=== PATIENT | female | born 1990 | race Hispanic/Latino ===

== ENCOUNTER 2018-10-31 19:01 | Inpatient (IN) | payer MEDICAID, OTHER, SELFPAY ==
[2018-10-31 19:57] VITALS: BMI 37.4
[2018-10-31] MEDS ORDERED: hydrALAZINE 20 MG/ML VIAL SLOW IVP PRN (21:15)
[2018-10-31] MEDS ORDERED: Butorphanol Tartrate 1 MG/ML VIAL SLOW IVP PRN (21:15)
[2018-10-31] MEDS ORDERED: Misoprostol 200 MCG TAB PR PRN (21:15)
[2018-10-31] MEDS ORDERED: NS / Oxytocin 40 units/1000ml 1,000 ML IV PRN (21:15)
[2018-10-31] MEDS ORDERED: Lidocaine 1% (PF) 30 ML VIAL SC PRN (21:15)
[2018-10-31] MEDS ORDERED: Promethazine HCl 25 MG/ML VIAL IM PRN (21:15)
[2018-10-31] MEDS ORDERED: Carboprost 250 MCG/ML AMP IM PRN (21:15)
[2018-10-31] MEDS ORDERED: Methylergonovine 0.2 MG/ML VIAL IM PRN (21:15)
[2018-10-31] MEDS ORDERED: Ondansetron PF 4 MG/2 ML Vial IVP PRN (21:15)
[2018-10-31] MEDS ORDERED: Ibuprofen 800 MG TAB PO PRN (21:15)
[2018-10-31] MEDS ORDERED: HYDROcodone/Acetaminophen 5/325 mg Tablet PO PRN (21:15)
[2018-10-31] MEDS ORDERED: Diphenoxylate HCl/Atropine Tablet PO PRN (21:15)
[2018-10-31] MEDS ORDERED: NS w/ Oxytocin 10 units 500 ML IV SCH ×2 (21:30)
[2018-10-31 21:49] LABS: Hemoglobin 13.4 g/dL (12.0-16.0); Mean Corpuscular HGB CONC 34.8 g/dL (32.0-36.0); Mean Corpuscular Hemoglobin 31.1 pg (27.0-31.0); Mean Corpuscular Volume 89.4 fL (78.0-98.0); Platelet Count 212 thou/uL (130-400); RBC Distribution Width 12.8 % (11.5-14.5); Red Blood Cell (RBC) Count 4.31 mill/uL (4.20-5.40); White Blood Cell (WBC) Count 9.5 thou/uL (4.8-10.8)
[2018-10-31 22:25] LABS: Syphilis Antibody Nonreactive (Nonreactive); Syphilis Antibody Index 0.03 S/CO (<1.00 Non-Reactive)
[2018-10-31] MEDS: Lactated Ringer's 1,000 ML IV SCH (22:29)
[2018-10-31] MEDS: Misoprostol 100 MCG TAB PO SCH (22:29)
[2018-10-31 23:09] LABS: HBSAg Index 0.18 S/CO (0-0.99); Hep B Surf Ag Non-Reactive S/CO (NonReactive)
[2018-11-01] MEDS: Lactated Ringer's 1,000 ML IV SCH ×2 (02:30→11:03)
[2018-11-01] MEDS: Misoprostol 100 MCG TAB PO SCH (03:03)
[2018-11-01] MEDS ORDERED: Fentanyl 4 mcg/Bup 0.1% Cadd 100 ML ONE (12:51)
[2018-11-01] MEDS ORDERED: Lidocaine 1.5%/Epinephrine 1:200,000 5 ML AMPUL IJ ONE (13:01)
[2018-11-01] MEDS ORDERED: ePHEDrine/0.9% NaCl/PF SYRINGE 50 mg/10 ml SLOW IVP PRN (13:14)
[2018-11-01] MEDS ORDERED: Promethazine HCl 25 MG/ML VIAL IM PRN ×2 (13:14→17:46)
[2018-11-01] MEDS ORDERED: Ondansetron PF 4 MG/2 ML Vial IVP PRN ×2 (13:14→17:46)
[2018-11-01] MEDS ORDERED: Acetaminophen 325 MG TAB PO PRN (13:14)
[2018-11-01] MEDS ORDERED: diphenhydrAMINE 50 MG/ML VIAL IVP PRN (13:14)
[2018-11-01] MEDS ORDERED: Naloxone HCl 0.4 mg/ml Vial IVP PRN ×2 (13:14)
[2018-11-01] MEDS ORDERED: Lactated Ringer's 500 ML IV PRN (13:14)
[2018-11-01] MEDS ORDERED: Fentanyl 4 mcg/Bupivacaine 0.1% Cassette 100 ML EPIDURAL SCH (13:15)
[2018-11-01] MEDS ORDERED: Communication Order-Pharmacy FS SCH (13:15)
[2018-11-01] MEDS ORDERED: Milk Of Magnesia 30 ML UDCUP PO PRN (17:46)
[2018-11-01] MEDS ORDERED: hydrALAZINE 20 MG/ML VIAL SLOW IVP PRN (17:46)
[2018-11-01] MEDS ORDERED: Lanolin Ointment 7 GM TUBE TOP PRN (17:46)
[2018-11-01] MEDS ORDERED: Benzocaine-Menthol 82.5 ML CAN TOP PRN (17:46)
[2018-11-01] MEDS ORDERED: HYDROcodone/Acetaminophen 5/325 mg Tablet PO PRN ×2 (17:46)
[2018-11-01] MEDS ORDERED: NS / Oxytocin 40 units/1000ml 1,000 ML IV SCH (17:46)
[2018-11-01] MEDS ORDERED: diphenhydrAMINE 25 MG CAP PO PRN (17:46)
[2018-11-01] MEDS ORDERED: Bisacodyl 10 MG SUPP PR PRN (17:46)
[2018-11-01] MEDS ORDERED: Preparation H Ointment 28 GM TUBE PR PRN (17:46)
[2018-11-01] MEDS ORDERED: Adacel (T-DAP) 0.5 ML SYRINGE IM ONE (18:00)
[2018-11-01] MEDS ORDERED: Ferrous Sulfate 325 MG TAB PO SCH (18:00)
[2018-11-01] MEDS: Ibuprofen 800 MG TAB PO SCH (22:40)
[2018-11-01] MEDS: Docusate Calcium (SURFAK) 240 MG CAP PO SCH (22:40)
[2018-11-02] MEDS: Ibuprofen 800 MG TAB PO SCH ×2 (06:14→14:30)
[2018-11-02] MEDS: Misoprostol 100 MCG TAB PO SCH (07:28)
[2018-11-02] MEDS: Ferrous Sulfate 325 MG TAB PO SCH ×2 (07:32→14:38)
[2018-11-02] MEDS ORDERED: Prenatal Vitamin 1 TAB PO SCH (09:00)
[2018-11-02] MEDS: Docusate Calcium (SURFAK) 240 MG CAP PO SCH (09:09)
[2018-11-02 11:41] VITALS: BP 104/59; TEMP 97.6
== END 2018-11-02 17:20 | disposition home or self-care (01) | DRG 807 ==
LOC: L&D 19:01 → 3SW 11-01 19:53
PROVIDERS: ADMIT Family Medicine; ATTEND Family Medicine
PROC: 10E0XZZ Delivery of Products of Conception, External Approach (ICD-10-PCS; principal; 2018-11-01)
PROC: 0KQM0ZZ Repair Perineum Muscle, Open Approach (ICD-10-PCS; 2018-11-01)
PROC: 3E0P7VZ Introduction of Hormone into Female Reproductive, Via Natural or Artificial Opening (ICD-10-PCS; 2018-11-01)
PROC: 10907ZC Drainage of Amniotic Fluid, Therapeutic from Products of Conception, Via Natural or Artificial Opening (ICD-10-PCS; 2018-11-01)
DX: O99.214 Obesity complicating childbirth (principal); Z37.0 Single live birth; E66.9 Obesity, unspecified; O69.81X0 Labor and delivery complicated by cord around neck, without compression, not applicable or unspecified; Z3A.39 39 weeks gestation of pregnancy; O70.1 Second degree perineal laceration during delivery
CPT/HCPCS: 36415; 85027; 86780; 86850; 86900; 86901; 87340; 90715; J0595; J2590; J3490